=== PATIENT | female | born 1955 | race Caucasian/White ===

== ENCOUNTER 2023-05-10 16:13 | Outpatient (REF) | payer OTHER, SELFPAY ==
[2023-05-10 18:30] LABS: Vitamin B12 806 pg/mL (200-900)
== END 2023-05-10 16:14 | disposition home or self-care (01) ==
LOC: HO.LAB 16:13
PROVIDERS: Visit Provider Psychiatry & Neurology Neurology
DX: G31.84 Mild cognitive impairment of uncertain or unknown etiology (principal)
CPT/HCPCS: 36415; 82607